=== PATIENT | female | born 1985 | race Caucasian/White ===

== ENCOUNTER → 2017-07-03 | Outpatient (CLI) | payer MEDICAID ==
[~2017-07-03] MED LIST: ABCT PO; ACET-789 PO; AZIT-21 PO; D-ME118S7 PO; DOXY100C2 PO; GUAI120S36 PO; IBUP-1773 PO; METR500T; NEOM10DR20 EACH EAR; NITR-65 PO; ONDAN4ODT PO; PRD20T PO; PREN-93 PO; PREN1TAB39 PO; SERT25TA PO; iud
--- NOTE | 2017-07-03 13:52 | Diagnostic Imaging Report ---
INDICATION: Pelvic pain. TECHNIQUE: Transabdominal and transvaginal pelvic sonography was performed. FINDINGS: The uterus measures 7.4 x 4.4 x 3.2 cm. The endometrium is 6 mm in thickness. No uterine mass is identified. The right ovary measures 1.7 x 2.5 x 3.5 cm and the left ovary measures 2.2 x 1.4 x 2.7 cm. There is vascularity to the ovaries. No adnexal mass or free fluid is identified. IMPRESSION: Essentially unremarkable transabdominal and transvaginal pelvic ultrasound. Dictated by: Dictated on workstation # [id number]
== END ==
LOC: RAD 12:24
PROVIDERS: ATTEND Obstetrics & Gynecology
DX: R10.2 Pelvic and perineal pain (principal)
CPT/HCPCS: 76830; 76856

== ENCOUNTER 2017-11-16 08:45 | Day surgery (SDC) | payer MEDICAID ==
[~2017-11-16] VITALS: Ht 160 cm; Wt 102.5 kg
[2017-11-16] VITALS (7 sets, daily range): BP systolic 95–112; BP diastolic 54–65
[2017-11-16] MEDS ORDERED: ceFAZolin INJECTION 1,000 MG in NS (IVPB) 50 ML IV ONE (09:00)
[2017-11-16] MEDS: LACTATED RINGERS 1,000 ML IV PRN ×2 (09:15→11:25)
[2017-11-16] MEDS ORDERED: D5 LR IV SOLUTION 1,000 ML IV SCH (09:23)
[2017-11-16] MEDS ORDERED: HYDR-757 PO (09:25)
[2017-11-16] MEDS ORDERED: IBUP-1773 PO (09:25)
--- NOTE | 2017-11-16 09:25 | Discharge Inst-Women's Service ---
Discharge Inst-Women's Serv Depart Medication/Instructions New, Converted or Re-Newed RX: RX on Chart Consults/Follow Up Additional Follow Up: Yes Orders/Referrals Dr. Hernandez in 7-10 days Activity Activity: Activity as Tolerated Driving Instructions: You May Drive NO SMOKING: NO SMOKING Nothing Inside Vagina: No Douching, No Abrams, No Tampons Diet Discharge Diet: No Restrictions Symptoms to Report to : Bleeding Excessive, Pain Increased, Fever Over 101 Degrees F, Vaginal Bleeding Increase, Questions/Concerns For Any Problems or Questions: Contact Your Physician Skin/Wound Care Infection Signs and Symptoms: Increased Redness, Foul Odor of Wound, Increased Drainage, Skin Itchy or Has a Rash, Increased Swelling, Temperature Above 101 F Operative Area Clean and Dry: Keep Incision Clean/Dry Stitches/Danny/Dermabond: Dermabond, Care of Stitches Bathing Instructions: JAE Baez DO Nov 16, 2017 09:25
[2017-11-16] MEDS ORDERED: ONDANSETRON 4 MG/2 ML (SDV) Z0FRAN IVP PRN ×2 (09:30→12:15)
[2017-11-16] MEDS ORDERED: KETOROLAC 30 MG/ML VIAL IVP ONE (09:30)
[2017-11-16] MEDS ORDERED: HYDROcodone/APAP 5 MG/325 MG (LORTAB) TAB PO PRN (09:30)
[2017-11-16] MEDS ORDERED: FAMOTIDINE 20MG/2ML IV (PEPCID) IVP ONE (09:45)
[2017-11-16 09:53] LABS: BASOPHILS % (AUTO) 0 % (0-10); EOSINOPHILS # (AUTO) 0.1 10^3/uL (0.0-0.3); EOSINOPHILS % (AUTO) 1 % (0-10); HEMATOCRIT 39 % (35-52); LYMPHOCYTES # (AUTO) 3.1 X 10^3 (1.0-4.0); LYMPHOCYTES % (AUTO) 31 % (12-44); MEAN CORPUSCULAR HEMOGLOBIN 30 PG (25-34); MEAN CORPUSCULAR HGB CONC 33 G/DL (32-36); MEAN CORPUSCULAR VOLUME 91 FL (80-99); MEAN PLATELET VOLUME 9.6 FL (7.4-10.4); MONOCYTES # (AUTO) 1.1 X 10^3 (0.0-1.0); MONOCYTES % (AUTO) 10 % (0-12); NEUTROPHILS % (AUTO) 58 % (42-75); PLATELET COUNT 345 10^3/uL (130-400); RED BLOOD COUNT 4.27 10^6/uL (4.35-5.85); RED CELL DISTRIBUTION WIDTH 12.8 % (10.0-14.5); WHITE BLOOD COUNT 10.3 10^3/uL (4.3-11.0)
[2017-11-16] MEDS ORDERED: LIDOCAINE PF 2% 5 ML (XYLOCAINE) VIAL ONE (10:24)
[2017-11-16] MEDS ORDERED: ONDANSETRON 4 MG/2 ML (SDV) Z0FRAN ONE ×2 (10:24→12:21)
[2017-11-16] MEDS ORDERED: SEVOFLURANE (ULTANE) 15 ML INHAL SOLN ONE (10:24)
[2017-11-16] MEDS ORDERED: ROCURONIUM 10 MG/ML 5 ML SYRINGE IV ONE (10:24)
[2017-11-16] MEDS ORDERED: NEOSTIGMINE 1 MG/ML 5 ML SYRINGE ONE (10:24)
[2017-11-16] MEDS ORDERED: proPOfol 200 MG/20 ML (DIPRIVAN) VIAL IV ONE (10:24)
[2017-11-16] MEDS ORDERED: DEXAMETHASONE 10 MG/ML (DECADRON) 1 ML VIAL ONE (10:24)
[2017-11-16] MEDS ORDERED: GLYCOPYRROLATE 0.2 MG/ML (ROBINUL) 2 ML VIAL ONE (10:24)
[2017-11-16] MEDS ORDERED: fentaNYL INJECTION 250 MCG/5 ML AMP ONE (10:25)
[2017-11-16] MEDS ORDERED: MIDAZOLAM 2 MG/2 ML (VERSED) VIAL ONE (10:25)
[2017-11-16] MEDS ORDERED: BUPIVACAINE 0.25% 30 ML (SENSORCAINE) VIAL ONE (10:32)
[2017-11-16] MEDS ORDERED: HYDROmorphone 1 MG/ML (DILAUDID) 1 ML SYRINGE IV PRN (12:15)
[2017-11-16] MEDS ORDERED: morphine INJ 10 MG/ML 1ML (SYR OR VIAL) ONE (12:20)
[2017-11-16] MEDS ORDERED: KETOROLAC 30 MG/ML VIAL ONE (12:20)
[2017-11-16] MEDS: morphine INJ 10 MG/ML 1ML (SYR OR VIAL) IVP PRN ×2 (12:24→12:29)
--- NOTE | 2017-11-16 14:08 | Anesthesia-General Post-Op ---
General Patient Condition Mental Status/LOC: Same as Preop Cardiovascular: Satisfactory Nausea/Vomiting: Absent Respiratory: Satisfactory Pain: Controlled Complications: Absent Post Op Complications Complications None Follow Up Care/Instructions Patient Instructions None needed. Anesthesia/Patient Condition Patient Condition Patient is doing well, no complaints, stable vital signs, no apparent adverse anesthesia problems. No complications reported per nursing. [place] [facility] No JUDY JOHNSON CRNA Nov 16, 2017 14:08
--- NOTE | 2017-11-16 21:36 | OPERATIVE REPORT ---
DATE OF SERVICE: PREOPERATIVE DIAGNOSIS: A 32-year-old female with chronic pelvic pain. POSTOPERATIVE DIAGNOSES: 1. A 32-year-old female with chronic pelvic pain. 2. Left ovarian cyst. 3. Filmy adhesions of the anterior abdominal wall. PROCEDURE: Laparoscopic left ovarian cystotomy with lysis of adhesions. SURGEON: Jae Lee DO ANESTHESIA: General endotracheal. ESTIMATED BLOOD LOSS: Minimal. URINE OUTPUT: 1200 mL of lactated Ringer's solution. SPECIMENS SENT: None. INDICATIONS FOR PROCEDURE: This 32-year-old female was a patient who had been seeing me for over 3 months now with this onset of pelvic pain. Initially with this pain, the patient had been diagnosed with PID and was treated; however, her test of cure three months later was found to be negative. The patient continued to have ongoing issues with the same pain that was bothering her when she had the PID diagnosis. She reports that she has always had chronic pelvic pain; however, now it seems to be getting worse. I discussed with the patient a more conservative management options. However, she wanted to be more aggressive as the pain was becoming debilitating with her life and her job. Risk of the procedure was discussed with the patient in detail including risk of bleeding, infection, damage to surrounding structures including but not limited to bowel, bladder, ureter, kidneys, pre and postoperative expectations, possible postoperative complications, risk from anesthesia and even . After everything was discussed with the patient in detail, consent was obtained in the preoperative area and the patient was taken to the operating room. OPERATIVE REPORT IN DETAIL: Once in the operating room, general anesthesia was found to be adequate, placed in dorsal lithotomy position, prepped and draped in normal sterile fashion. A timeout was performed. A Bernal catheter was placed using sterile technique. A weighted speculum was inserted in the patient's vagina. A right angle retractor was used to visualize the cervix, which was grasped at 12 o'clock position using a long Allis clamp. I then gently sound the uterine cavity depth, which was found to be 8 cm. I placed a Vdolger uterine manipulator to a depth of 8 cm deploying the balloon and used this as my manipulation on the uterus. All other instruments were then removed from the patient's vagina and a Bernal catheter was left in place. A change of gloves was performed and I then took my attention to the abdomen. Infraumbilically, I infiltrated this area using 0.25% Marcaine, making a 5 mm incision and directed a Veress needle through this incision until intraperitoneal placement was confirmed using a saline drop test; however, when I did go to insufflate, I was able to confirm intraperitoneal pressure; therefore, I did go to the left upper quadrant mid costal margin and made a 2 mm incision just wide enough to allow a Veress needle to go through this incision. I introduced it through the skin down to the peritoneum until intraperitoneal placement was confirmed using saline drop test. I then proceeded with insufflation using CO2 gas and opening pressure of 6 mmHg and then, I proceeded to maximum pressure of 15 mmHg, at which point, I removed this Veress needle and introduced a 5 mm blunt camera trocar through my infraumbilical trocar site. Once this was done, I was able to confirm intraperitoneal placement using the laparoscope. There were filmy adhesions just around my insertion point; however, no involvement of bowel, only greater omentum. I then placed a second trocar site 5 mm. The skin was infiltrated suprapubically using 0.25% Marcaine. I made a 5 mm incision and direct this trocar through the incision until intraperitoneal placement was confirmed with direct visualization of the laparoscope. Once this was in place, I had the patient placed in steep Trendelenburg. I was able to see all of the findings described in my findings above. I took down the filmy adhesions of the pelvic lower anterior abdominal wall using EndoShears. I then created a large window in this left ovarian cyst. It is approximately 3 x 4 cm. Clear yellow fluid was noted from the cyst, after which, it was copiously irrigated using normal saline. There was no active bleeding noted from any of my dissection planes. I copiously irrigated the pelvis and inspected the rest of the pelvis for any signs of endometriosis or residual disease involving PID or chronic adhesions. There was nothing of the sort. At that point, I deemed the procedure complete. The insufflation was released through the two trocar sites and 10 mL of 0.25% Marcaine was introduced through these trocar sites as well. I then left the trocar sites in place to release all insufflation and removed the trocars. The skin was reapproximated using Dermabond in all three incisions sites. The Bernal catheter and Kronner uterine manipulator was removed without difficulty. The patient tolerated the procedure well and sent to recovery area in stable condition. Lap and sponge counts were correct at the end of the procedure. Instrument counts were correct as well. Job ID: [id number] DocumentID: [id number] Dictated Date: 11/16/2017 12:05:59 [employer] Date: 11/16/2017 21:35:13 Dictated By: JAE LEE DO
== END 2017-11-16 16:30 | disposition home or self-care (01) ==
LOC: SDC 08:45
PROVIDERS: ATTEND Obstetrics & Gynecology
DX: N83.202 Unspecified ovarian cyst, left side (principal); R10.2 Pelvic and perineal pain; J45.909 Unspecified asthma, uncomplicated; E66.01 Morbid (severe) obesity due to excess calories; Z68.41 Body mass index [BMI] 40.0-44.9, adult
CPT/HCPCS: 36415; 84703; 85025; 86850; 86900; 86901; 87081; 94664

== ENCOUNTER → 2018-11-02 | Outpatient (CLI) | payer BC, MEDICAID ==
[~2018-11-02] MED LIST changes: +HYDR-4226 PO
--- NOTE | 2018-11-02 18:36 | Diagnostic Imaging Report ---
INDICATION: Anatomic survey. TECHNIQUE: Multiple real-time grayscale images were obtained over the gravid uterus. COMPARISON: None. FINDINGS: There is a single live intrauterine gestation. Presentation is breech. The cervix measures 5.8 cm with no funneling seen. The placenta is anterior with no evidence of previa. The bladder is seen. The cord insertion is seen. Both the lower extremities are seen. The four-chamber heart is seen. The kidneys are seen. The stomach is seen. The profile is seen. The lower spine is seen. The upper spine is not well seen. The intracranial structures are not well seen. The ventricles do not appear enlarged. A three-vessel cord is not well seen on grayscale, but two uterine arteries are seen with Doppler. No anatomic abnormalities are seen. The maternal adnexa are not seen. Biometrical measurements are as follows: Biparietal 5.58 cm, age 23 weeks 1 days. Head circumference 20.83 cm, age 23 weeks 0 days. Abdominal circumference 18.77 cm, age 23 weeks 4 days. Femur length 3.97 cm, age 22 weeks 6 days. Sonographic estimate age: 23 weeks 1 days. Sonographic estimated date of delivery: 02/28/2019. Estimated Weight: 570 gm (+/- 83 gm). LMP percentile: 80%. heart rate: 151 beats per minute. number: 1 of 1. IMPRESSION: 1. Single live intrauterine gestation measuring at 23 weeks and 1 day, which is within range of the clinical dates of 22 weeks and 3 days. 2. Anatomic survey as described above. The upper spine and intracranial structures are not well seen. 3. Breech presentation. Dictated by: Dictated on workstation # [id number]
== END ==
LOC: RAD 15:52
PROVIDERS: ATTEND Obstetrics & Gynecology
DX: Z36.89 Encounter for other specified antenatal screening (principal); Z3A.23 23 weeks gestation of pregnancy
CPT/HCPCS: 76805

== ENCOUNTER 2018-12-28 12:17 | Outpatient (CLI) | payer MEDICAID ==
[~2018-12-28] VITALS: Ht 160 cm; Wt 107.0 kg
[2018-12-28 12:25] VITALS: BP 104/55
--- NOTE | 2018-12-28 12:25 | NUR ---
YASMEEN CANSECO presented to unit via ambulation from ED, accompanied by s/o , with c/o contractions, nausea, dizziness, lightheadedness. Pt. weighed, gowned, voided, and to bed. EFHM and TOCO applied, VS taken. Pt. oriented to bed controls, call light, TV, heat, and A/C controls.
--- NOTE | 2018-12-28 12:30 | NUR ---
pt reports feeling "shaky" at work, dizzy, and lightheaded that started @ 1030 this a.m. emesis x1 this a.m. c/o generalized weakness and fatigue; pain and pressure in vaginal area x 1-1.5 weeks. reports being treated @ [facility] on December 19 for dehydration, received IVF's.
--- NOTE | 2018-12-28 12:49 | NUR ---
closed, thick, posterior.
[2018-12-28 13:05] VITALS: BP 113/54
--- NOTE | 2018-12-28 13:10 | NUR ---
up to BR. UA specimen collected, labeled and sent to lab.
[2018-12-28 13:40] LABS: CLARITY,URINE CLEAR; COLOR,URINE YELLOW; GLUCOSE, URINE (UA) NEGATIVE (NEGATIVE); KETONES,URINE 1+ (NEGATIVE); LEUKOCYTE ESTERASE ,URINE 1+ (NEGATIVE); NITRITE,URINE NEGATIVE (NEGATIVE); PH,URINE 5 (5-9); PROTEIN,URINE 2+ (NEGATIVE); UROBILINOGEN,URINE 4 MG/DL (NORMAL)
[2018-12-28 13:46] LABS: BILIRUBIN,URINE 1+ (NEGATIVE)
--- NOTE | 2018-12-28 13:50 | NUR ---
called. will return phone call after OR case.
[2018-12-28 13:53] LABS: BACTERIA,URINE LARGE /HPF; RBC,URINE 0-2 /HPF; WBC,URINE 0-2 /HPF
--- NOTE | 2018-12-28 14:45 | NUR ---
was called. reviewed pt's admit c/o's, UA results and monitor tracing. orders received for IV fluids, may dismiss after when stable.
[2018-12-28] MEDS ORDERED: D5 LR IV SOLUTION 1,000 ML IV ONE ×2 (14:48→15:00)
--- NOTE | 2018-12-28 15:00 | NUR ---
#20g IV to Rt.AC x1 attempt by this RN. site patent, secured with opsite. D5LR infusing w/o per gravity.
--- NOTE | 2018-12-28 15:43 | NUR ---
regular diet served per pt's request. pt eating chicken strips, mashed potatoes.
--- NOTE | 2018-12-28 16:34 | NUR ---
dismissal instructions given, verbalizes understanding. signature page signed, placed on chart. instructed to follow up with as scheduled.
--- NOTE | 2018-12-28 16:47 | NUR ---
IV site dc'd. Addendum: 12/28/18 at 2038 by MAMI GRAHAM RN D5LR infusion completed.
--- NOTE | 2018-12-28 17:48 | NUR ---
pt ambulated to private vehicle with s/o @ side. pt stable with no sx's distress noted.
--- NOTE | 2018-12-31 09:34 | Physician Query-Final Dx ---
DOMINIK ARRINGTON 12/31/18 0934: Clinic Account Progress/Dx Physician Query: Please give diagnosis Please remember to give gestational weeks Date of Service Dec 28, 2018 at 12:17 STEPHANIE KOLB MD 12/31/18 1357: Clinic Account Progress/Dx DIAGNOSIS: Diagnosis FALSE LABOR - ?? DOMINIK CROWLEY Dec 31, 2018 09:34 STEPHANIE KOLB MD Dec 31, 2018 13:57
== END 2018-12-28 17:48 | disposition home or self-care (01) ==
LOC: WSo 12:17 → LDRP 12:18 → WSo 17:48
PROVIDERS: ATTEND Obstetrics & Gynecology
DX: O47.9 False labor, unspecified (principal)
CPT/HCPCS: 81000; 87088; 96360; 96361; 99213

== ENCOUNTER 2019-02-25 09:52 | Outpatient (CLI) | payer OTHER ==
[~2019-02-25] VITALS: Ht 160 cm; Wt 106.3 kg
[2019-02-25 14:11] VITALS: BP 114/76
[2019-02-25] MEDS ORDERED: FAMO40TA6 PO (14:22)
[2019-02-25] MEDS ORDERED: PNV1TABL81 PO (14:22)
[2019-02-25] MEDS ORDERED: FERR325T18 PO (14:22)
[2019-03-01] MEDS ORDERED: DOCU100C37 PO (08:26)
[2019-03-01] MEDS ORDERED: IBUP-844 PO (08:26)
[2019-03-01] MEDS ORDERED: HYDR-4226 PO (08:26)
== END 2019-02-25 10:18 | disposition home or self-care (01) ==
LOC: PREOP 09:52
PROVIDERS: ATTEND Obstetrics & Gynecology
DX: Z01.818 Encounter for other preprocedural examination (principal)
CPT/HCPCS: 87081

== ENCOUNTER 2019-03-01 05:25 | Inpatient (IN) | payer MEDICAID, OTHER ==
[~2019-03-01] VITALS: Ht 160 cm; Wt 106.5 kg
[2019-03-01] VITALS (9 sets, daily range): BP systolic 100–120; BP diastolic 56–111
[~2019-03-01 05:25] MED LIST changes: +ERYTHROMYCIN OPHTH OINT 1 GM (SINGLE USE) TUBE ONE; +FAMO40TA6 PO; +FERR325T18 PO; +PETROLATUM JELLY(VASELINE) 49 GM JAR ONE; +PHYTONADIONE (VIT. K) NEONATAL 1 MG/0.5 ML AMP ONE; +PNV1TABL81 PO
--- NOTE | 2019-03-01 06:10 | NUR ---
YASMEEN CANSECO presented to unit via ambulation from home, accompanied by family , for REPEAT . YASMEEN CANSECO weighed, gowned, voided, and to bed. EFHM and TOCO applied, VS taken. YASMEEN CANSECO oriented to bed controls, call light, TV, heat, and A/C controls.
[2019-03-01] MEDS ORDERED: METOCLOPRAMIDE INJ 10 MG/2 ML (REGLAN) ONE (06:15)
[2019-03-01] MEDS ORDERED: WATER (STERILE) FOR INJECTION 0 ML ONE (06:16)
[2019-03-01] MEDS ORDERED: FAMOTIDINE 20MG/2ML IV (PEPCID) ONE (06:16)
[2019-03-01] MEDS ORDERED: ceFAZolin INJECTION 0 MG ONE (06:16)
[2019-03-01] MEDS ORDERED: CITRIC ACID/SOB CIT (BICITRA) 30 ML UDC ONE (06:16)
[2019-03-01] MEDS ORDERED: LACTATED RINGERS 1,000 ML IV ONE (06:16)
[2019-03-01] MEDS ORDERED: LACTATED RINGERS 1,000 ML IV PRN ×2 (06:29)
[2019-03-01] MEDS ORDERED: ceFAZolin INJECTION 1,000 MG in WATER (STERILE) FOR INJECTION 10 ML IV ONE (06:30)
[2019-03-01] MEDS ORDERED: METOCLOPRAMIDE INJ 10 MG/2 ML (REGLAN) IV ONE (06:30)
[2019-03-01] MEDS ORDERED: CITRIC ACID/SOB CIT (BICITRA) 30 ML UDC PO ONE (06:30)
[2019-03-01] MEDS ORDERED: FAMOTIDINE 20MG/2ML IV (PEPCID) IV ONE (06:30)
--- NOTE | 2019-03-01 06:51 | History & Physical-OB ---
OB - Chief Complaint & HPI Date/Time Date of Admission: Date of Admission: Mar 01, 2019 at 6:13 am Date seen by a Provider: Mar 01, 2019 Time Seen by a Provider: 07:05 Chief Complaint/History OB-Reason for Admission/Chief: Section Hx : 3 Hx Para: 1 Expected Date of Delivery: Mar 05, 2019 Gestational Age in Weeks: 39 Gestational Age in Days: 3 Indication for : desires repeat Admission Nurse Assessment Rev: Yes History of Labs O pos Antibody neg RI RPR NR HBsAg NR HIV NR GC neg GBS neg Allergies and Home Medications Allergies Coded Allergies: cephalexin (Unverified Allergy, Unknown, 07/16/14) Home Medications Famotidine 40 Mg Tablet, 40 MG PO DAILY, (Reported) Ferrous Sulfate 325 Mg Tablet, 325 MG PO DAILY, (Reported) Pnv No.122/Iron/Folic Acid 1 Each Tablet, 1 EACH PO DAILY, (Reported) Patient Home Medication List Home Medication List Reviewed: Yes OB - History Hx of Present Care: Yes Ultrasounds: Normal mid trimester US Obstetrical Complications: None Medical Complications: None Delivery History Hx Section: Yes (w/ current ) Hx Blood Disorders: No Patient Past Medical History Endometriosis BMI 40 Social History/Family History Sexually Transmitted Disease: No Immunizations Tetanus Booster (TDap): Unknown OB - Admission Exam Physical Exam HEENT: NCAT Heart: Rhythm Normal Lungs: Clear Abdomen: Gravid Extremities: Normal Reflexes: Normal Heart Rate: 130's Accelerations: Accelerations Present Decelerations: No Decelerations Short Term Variability: Present Detention Variability: Average (6-25) Contractions on Admission: >10 Minutes Apart Intensity: Mild OB - Assessment/Plan/Diagnosis Assessment Assessment: section Admission Dx 34 yo @ 39.3 Previous GBS neg BMI >35 Admission Status: Inpatient Order (span 2 midnights) Reason for Inpatient Admission: Repeat at term Plan Plan: Section JAE LEE DO Mar 01, 2019 6:51 am
[2019-03-01] MEDS ORDERED: BUPIVACAINE 0.5% 30 ML (SENSORCAINE) VIAL ONE (06:52)
[2019-03-01] MEDS ORDERED: fentaNYL INJECTION 100 MCG/2 ML AMP ONE (06:53)
[2019-03-01] MEDS ORDERED: OXYTOCIN PRE-MIX DRIP 500 ML IV ONE (06:57)
[2019-03-01] MEDS ORDERED: CLINDAMYCIN 900 MG/50 ML IVPB 50 ML IV ONE (07:00)
[2019-03-01 07:01] LABS: BASOPHILS % (AUTO) 0 % (0-10); EOSINOPHILS # (AUTO) 0.1 10^3/uL (0.0-0.3); EOSINOPHILS % (AUTO) 1 % (0-10); HEMATOCRIT 30 % (35-52); HEMOGLOBIN 10.1 G/DL (11.5-16.0); LYMPHOCYTES # (AUTO) 3.6 X 10^3 (1.0-4.0); LYMPHOCYTES % (AUTO) 19 % (12-44); MEAN CORPUSCULAR HEMOGLOBIN 31 PG (25-34); MEAN CORPUSCULAR HGB CONC 33 G/DL (32-36); MEAN CORPUSCULAR VOLUME 91 FL (80-99); MEAN PLATELET VOLUME 9.2 FL (7.4-10.4); MONOCYTES # (AUTO) 1.3 X 10^3 (0.0-1.0); MONOCYTES % (AUTO) 7 % (0-12); NEUTROPHILS # (AUTO) 14.2 X 10^3 (1.8-7.8); NEUTROPHILS % (AUTO) 74 % (42-75); PLATELET COUNT 341 10^3/uL (130-400); RED CELL DISTRIBUTION WIDTH 14.2 % (10.0-14.5); WHITE BLOOD COUNT 19.2 10^3/uL (4.3-11.0)
[2019-03-01] MEDS ORDERED: PHENYLEPHRINE 100 MCG/ML 10 ML (ANESTHESIA) SYR ONE (07:34)
[2019-03-01] MEDS: OXYTOCIN PRE-MIX DRIP 500 ML IV SCH ×2 (07:48→08:10)
[2019-03-01 07:53] LABS: BAND NEUTROPHILS 2 %; BASOPHILS % (MANUAL) 0 %; EOSINOPHILS % (MANUAL) 0 %; LYMPHOCYTES % (MANUAL) 18 %; MONOCYTES % (MANUAL) 4 %; NEUTROPHILS % (MANUAL) 76 %; RBC MORPH NORMAL
[2019-03-01] MEDS ORDERED: KETOROLAC 30 MG/ML VIAL ONE (08:14)
[2019-03-01] MEDS ORDERED: IBUP-844 PO (08:26)
[2019-03-01] MEDS ORDERED: HYDR-4226 PO (08:26)
[2019-03-01] MEDS ORDERED: DOCU100C37 PO (08:26)
--- NOTE | 2019-03-01 08:27 | Discharge Inst-Women's Service ---
Discharge Inst-Women's Serv Depart Medication/Instructions New, Converted or Re-Newed RX: RX on Chart Final Diagnosis POD 2 RLTCS Problems Reviewed?: Yes Consults/Follow Up Additional Follow Up: Yes Orders/Referrals Dr. Hernandez in 7-10 days and in 6 weeks Activity Activity: Activity as Tolerated Driving Instructions: No Driving for 1 Week NO SMOKING: NO SMOKING Nothing Inside Vagina: No Douching, No Toppers, No Tampons Diet Discharge Diet: No Restrictions Symptoms to Report to : Bleeding Excessive, Pain Increased, Fever Over 101 Degrees F, Vaginal Bleeding Increase, Questions/Concerns For Any Problems or Questions: Contact Your Physician Skin/Wound Care Infection Signs and Symptoms: Increased Redness, Foul Odor of Wound, Increased Drainage, Skin Itchy or Has a Rash, Increased Swelling, Temperature Above 101 F Operative Area Clean and Dry: Keep Incision Clean/Dry Stitches/Danny/Dermabond: Dermabond, Care of Stitches Bathing Instructions: JAE Baez DO Mar 01, 2019 8:27 am
[2019-03-01] MEDS ORDERED: MEASLES,MUMPS,RUBELLA 1 EA INJ SC SCH (08:30)
[2019-03-01] MEDS ORDERED: TETANUS,DIPTH,PERTUSS P/F (BOOSTRIX) 0.5 ML VIAL IM SCH (08:30)
[2019-03-01] MEDS ORDERED: ONDANSETRON 4 MG/2 ML (SDV) Z0FRAN IVP PRN (08:30)
[2019-03-01] MEDS: KETOROLAC 30 MG/ML VIAL IV SCH ×3 (08:56→21:29)
[2019-03-01] MEDS: DOCUSATE SODIUM 100 MG (COLACE) CAP PO SCH ×2 (10:19→21:29)
[2019-03-01] MEDS: HYDROcodone/APAP 5 MG/325 MG (LORTAB) TAB PO PRN ×2 (12:41→20:12)
--- NOTE | 2019-03-01 12:50 | NUR ---
PT ASSISTED UP TO THE BATHROOM PER THIS RN VIA W/C. + VOID, UNABLE TO MEASURE. PT BACK TO BED VIA W/C. SCDS ON CALVES BILATERALLY. PAIN MEDICATION GIVEN PER REQUEST; SEE EMAR FOR FURTHER. NO FURTHER NEEDS VOICED. CALL LIGHT WITHIN REACH.
[2019-03-01] MEDS ORDERED: CATHETER FLUSH 10 ML SYR IV SCH (14:00)
--- NOTE | 2019-03-01 14:20 | OPERATIVE REPORT ---
DICTATION IN ERROR PLEASE DELETE MTDD
--- NOTE | 2019-03-01 15:10 | NUR ---
PT IN BED, S/O AT THE BEDSIDE. VS OBTAINED. ROUTINE TORADOL GIVEN IVP; SEE EMAR FOR FURTHER. FRESH ICE WATER PROVIDED. NO FURTHER NEEDS VOICED. CALL LIGHT WITHIN REACH.
--- NOTE | 2019-03-01 16:55 | NUR ---
VISITORS AT THE BEDSIDE. PT DENIES ANY NEEDS AT THIS TIME.
--- NOTE | 2019-03-01 22:10 | OPERATIVE REPORT ---
DATE OF SERVICE: 03/01/2019 There is another partial dictionary editor that was started; however, I was interrupted so you can disregard that dictation and use this please as a primary dictation. PREOPERATIVE DIAGNOSES: 1. A 34-year-old G3, P1 at 39 weeks' gestation. 2. Previous section. POSTOPERATIVE DIAGNOSES: 1. A 34-year-old G3, P1 at 39 weeks' gestation. 2. Previous section. PROCEDURE: Repeat low transverse section. SURGEON: Scotty Lee DO PLATEN DRIER OPERATOR: Hali Saba DNP who was necessary for retraction of vital structures throughout the procedure. ANESTHESIA: Spinal. ESTIMATED BLOOD LOSS: 500 mL. URINE OUTPUT: 40 mL clear at the end of the procedure. FLUIDS: 1100 mL lactated Ringer's solution. FINDINGS: A live male , weight pending with Apgars of 8 and 9. Grossly normal appearing uterus, bilateral fallopian tubes and ovaries. INDICATIONS FOR PROCEDURE: This 34-year-old female is a patient who has sought care in my office. She was elected to proceed with a repeat . Risks of the procedure were discussed with the patient in detail, again reviewed with the patient in the preoperative area. After the consent was obtained the patient was taken to the operating room. OPERATIVE REPORT IN DETAIL: Once in the operating room, spinal anesthesia was found to be adequate, placed in supine position with leftward tilt, prepped and draped in normal sterile fashion. A timeout was performed and anesthesia was tested. I then proceeded with making a Pfannenstiel skin incision through the previously existing scar using knife and carried down to underlying fascia using Bovie cautery. Fascial incision was extended laterally using Bovie cautery. Superior aspect of fascial incision was then grasped with Dina clamps, tented upward and dissected off the underlying rectus muscles. The inferior aspect of the fascial incision was then grasped with Dina clamps, tented up and dissected off the underlying rectus muscles. Rectus muscles were then dissected down the midline using Pryor scissors, which exposed the peritoneum, which I entered bluntly and extended using blunt traction. Manuel ring retractor was then placed in the peritoneal incision, which offers excellent lateral sidewall retraction. I then identified the lower uterine segment, which was found to be thinned out and make a low transverse incision to the vesicouterine peritoneum and bluntly dissected off the lower uterine segment, creating a bladder flap. I then proceeded with my myotomy until membranes were visualized. At this point, I extended the uterine incision laterally and superiorly using bandage scissors. The was found in vertex presentation. Amniotomy was performed using Allis clamp. Clear fluid was noted. With gentle fundal pressure, the infant's head was elevated up the incision where it was delivered to the incision. The nares and oropharynx were bulb suctioned. Anterior and posterior shoulders were delivered. was then brought to the operative field where the cord was doubly clamped and cut and infant was handed off to waiting nurses in attendance. Cord blood was collected, 3-vessel cord with intact placenta was delivered spontaneously thereafter. IV Pitocin was initiated to facilitate uterine contraction. Uterine fundus became firm by manual massage. Uterus was exteriorized and cleared of all endometrial clots and debris. I then proceeded with closing the uterine incision using 0 Vicryl suture in running locked fashion. Second layer of imbricating 0 Monocryl was placed. Excellent hemostasis was noted after doing this. I then placed the uterus back in the pelvis, copiously irrigated the pelvis using normal saline. Once again, there was no active bleeding noted from any of my dissection planes. I placed Interceed antiadhesive over my low transverse incision and then proceeded with closing the peritoneum after removing the Manuel ring retractor. The peritoneum was reapproximated using 3-0 Vicryl suture in running fashion. Rectus muscle reapproximated using 3-0 Vicryl suture in interrupted fashion. The fascia was reapproximated using 0 Vicryl suture in running fashion. The subcutaneous tissue was reapproximated using 3-0 plain in an interrupted subcutaneous stitch and skin reapproximated using 4-0 Monocryl in a running subcuticular. Dermabond was applied to incision and sterile dressing with adhesive white tape. The patient tolerated the procedure well and sent to recovery area in stable condition. Lap and sponge counts were correct at the end of the procedure. Instrument counts correct as well. 900 mg of clindamycin were given preoperatively for infection prophylaxis due to a CEPHALOSPORIN ALLERGY. Job ID: [id number] DocumentID: [id number] Dictated Date: 03/01/2019 09:16:30 Physiotherapy Practice Manager Date: 03/01/2019 14:57:05 Dictated By: SCOTTY LEE DO
[2019-03-02 03:45] VITALS: BP 121/68
[2019-03-02] MEDS: KETOROLAC 30 MG/ML VIAL IV SCH (03:59)
[2019-03-02 05:52] LABS: BASOPHILS % (AUTO) 0 % (0-10); EOSINOPHILS # (AUTO) 0.2 10^3/uL (0.0-0.3); EOSINOPHILS % (AUTO) 1 % (0-10); HEMATOCRIT 32 % (35-52); HEMOGLOBIN 10.5 G/DL (11.5-16.0); LYMPHOCYTES # (AUTO) 3.1 X 10^3 (1.0-4.0); LYMPHOCYTES % (AUTO) 19 % (12-44); MEAN CORPUSCULAR HEMOGLOBIN 30 PG (25-34); MEAN CORPUSCULAR HGB CONC 33 G/DL (32-36); MEAN CORPUSCULAR VOLUME 92 FL (80-99); MEAN PLATELET VOLUME 9.7 FL (7.4-10.4); MONOCYTES # (AUTO) 1.2 X 10^3 (0.0-1.0); MONOCYTES % (AUTO) 7 % (0-12); NEUTROPHILS # (AUTO) 11.7 X 10^3 (1.8-7.8); NEUTROPHILS % (AUTO) 72 % (42-75); PLATELET COUNT 304 10^3/uL (130-400); RED CELL DISTRIBUTION WIDTH 14.4 % (10.0-14.5); WHITE BLOOD COUNT 16.3 10^3/uL (4.3-11.0)
--- NOTE | 2019-03-02 07:41 | Postpartum Progress Note ---
Note Note Day # 1 Subjective: Patient is without complaints. Ambulating, voiding. Tolerating a regular diet without nausea or vomiting. Normal lochia. Pain is well controlled with oral pain medications. Objective: Physical Exam: General - Alert and oriented, no apparent distress Abdomen - Soft, appropriately tender to palpation, non-distended, fundus firm at umbilicus Extremities - no edema, negative Robe's bilaterally Incision- c/d/i Assessment: POD 1 RLTCS Acute blood loss anemia Plan: Routine care. Encourage breast feeding. Encourage ambulation. Ferrous sulfate supplementation. Plan for discharge tomorrow Vitals - Labs Vital Signs - I&O Vital Signs Date Time Temp Pulse Resp B/P (MAP) Pulse Ox O2 Delivery O2 Flow Rate FiO2 03/02/19 03:45 36.3 73 20 121/68 (85) 96 Room Air 03/01/19 23:45 36.0 73 16 107/63 (78) 97 Room Air 03/01/19 20:00 36.5 93 18 118/69 (85) 97 Room Air 03/01/19 15:05 36.7 74 18 106/56 (73) 95 Room Air 03/01/19 10:48 Room Air 03/01/19 10:18 36.1 67 16 116/73 (87) 100 Room Air 03/01/19 09:30 Room Air 03/01/19 09:30 37.0 16 115/66 (82) 100 Room Air 03/01/19 09:15 37.1 16 100/111 (107) 63 Room Air 03/01/19 09:15 Room Air 03/01/19 09:00 Room Air 03/01/19 09:00 37.2 16 108/67 (81) 99 Room Air 03/01/19 08:45 Room Air 03/01/19 08:45 36.5 15 110/65 (80) 100 Room Air 03/01/19 08:30 Room Air I & O 03/02/19 07:00 Intake Total 3050 ml Output Total 900 ml Balance 2150 ml Labs Laboratory Tests 03/02/19 05:35: White Blood Count 16.3H, Red Blood Count 3.46L, Hemoglobin 10.5L, Hematocrit 32L , Mean Corpuscular Volume 92, Mean Corpuscular Hemoglobin 30, Mean Corpuscular Hemoglobin Concent 33, Red Cell Distribution Width 14.4, Platelet Count 304, Mean Platelet Volume 9.7, Neutrophils (%) (Auto) 72, Lymphocytes (%) (Auto) 19, Monocytes (%) (Auto) 7, Eosinophils (%) (Auto) 1, Basophils (%) (Auto) 0, Neutrophils # (Auto) 11.7H, Lymphocytes # (Auto) 3.1, Monocytes # (Auto) 1.2H, Eosinophils # (Auto) 0.2, Basophils # (Auto) 0.0 JAE LEE DO Mar 02, 2019 07:41
--- NOTE | 2019-03-02 07:50 | NUR ---
DR. LEE HERE TO SEE PT.
--- NOTE | 2019-03-02 08:00 | NUR ---
CARING FOR INFANT IN ROOM. GOOD INTERACTION NOTED. OFFERS NO COMPLAINTS.
--- NOTE | 2019-03-02 08:17 | Anesthesia-Regional Post-Op ---
Regional Patient Condition Mental Status: Alert, Oriented x3 Circulation: Same as Pre-Op Headache: Absent Sensation: Full Recovery Motor Block: Absent Post Op Complications Complications None Follow Up Care/Instructions Patient Instructions None needed. Anesthesia/Patient Condition Patient is doing well, no complaints, stable vital signs, no apparent adverse anesthesia problems. No complications reported per nursing. STEFANIA HERNANDEZ CRNA Mar 02, 2019 08:16
[2019-03-02 09:00] VITALS: BP 115/77
[2019-03-02] MEDS: DOCUSATE SODIUM 100 MG (COLACE) CAP PO SCH ×2 (09:00→21:07)
--- NOTE | 2019-03-02 09:00 | NUR ---
A.M. ASSESSMENT COMPLETED. VSS.
--- NOTE | 2019-03-02 09:12 | NUR ---
TDAP GIVEN IM IN RIGHT DELTOID PER PT REQUEST. SITE CLEAR. GETTING READY TO SHOWER.
[2019-03-02] MEDS: IBUPROFEN 600 MG (MOTRIN) TAB PO SCH ×3 (09:49→22:03)
--- NOTE | 2019-03-02 10:20 | NUR ---
PT C/O NAUSEA. SNACKS GIVEN. WILL RE-EVALUATE.
--- NOTE | 2019-03-02 12:30 | NUR ---
CONTINUES TO CARE FOR IN ROOM. GOOD INTERACTION NOTED.
[2019-03-02 13:45] VITALS: BP 122/66
[2019-03-02] MEDS: HYDROcodone/APAP 5 MG/325 MG (LORTAB) TAB PO PRN (13:52)
--- NOTE | 2019-03-02 13:52 | NUR ---
LORTAB 1 TAB P.O. FOR C/O ABD PAIN AFTER HAVING A BM. FAMILY AT BEDSIDE.
--- NOTE | 2019-03-02 16:00 | NUR ---
STATES PAIN EASED WITH LORTAB. ROUTINE MOTRIN GIVEN. S.O. AT BEDSIDE.
[2019-03-02 18:00] VITALS: BP 122/75
--- NOTE | 2019-03-02 18:00 | NUR ---
VSS. ENCOURAGED AMBULATION AGAIN IN [place].
--- NOTE | 2019-03-02 18:20 | NUR ---
OUT TO AMBULATE IN THE [place] PUSHING INFANT IN CRIB. MOVING WELL. FAMILY AT SIDE.
--- NOTE | 2019-03-02 19:15 | NUR ---
REPORT RECEIVED AND CARES RESUMED BY THIS NURSE.
--- NOTE | 2019-03-02 20:05 | NUR ---
PT UP AND AROUND IN ROOM WITH VISITORS PRESENT. PT DENIES ANY PAIN OR NEEDS AT THIS TIME. WILL RETURN FOR ASSESSMENT VISITORS LEAVE.
[2019-03-02 20:30] VITALS: BP 112/61
--- NOTE | 2019-03-02 21:10 | NUR ---
PT REPORTS IS HAVING BOWEL MOVEMENTS AND REFUSES COLACE AT THIS TIME. PT DENIES ANY FURTHER NEEDS.
[2019-03-03 00:30] VITALS: BP 124/74
[2019-03-03] MEDS: DOCUSATE SODIUM 100 MG (COLACE) CAP PO SCH (00:45)
--- NOTE | 2019-03-03 00:45 | NUR ---
PT REQUESTS COLACE STATING SHE IS CRAMPY AND UNABLE TO PASS BM. COLACE ADMINISTERED AT THIS TIME. PT DENIES ANY FURTHER NEEDS OR C/O'S.
[2019-03-03] MEDS: HYDROcodone/APAP 5 MG/325 MG (LORTAB) TAB PO PRN ×2 (02:20→07:54)
[2019-03-03 04:10] VITALS: BP 133/69
[2019-03-03] MEDS: IBUPROFEN 600 MG (MOTRIN) TAB PO SCH ×2 (04:12→09:53)
[2019-03-03 07:51] VITALS: BP 114/65
--- NOTE | 2019-03-03 07:51 | NUR ---
AM shift assessment completed and vital signs obtained, see interventions. Plan of care reviewed with patient. Patient verbalizes understanding and questions answered. Encouraged patient to ambulate in halls to relieve gas pain. Shower supplies provided. Scheduled Colace PO and PRN Lortab 1 PO given for patient's c/o pain rated 5/10. Patient denies any further needs or concerns at this time.
--- NOTE | 2019-03-03 09:40 | NUR ---
Dr. Hernandez here to see patient. New orders received.
--- NOTE | 2019-03-03 09:42 | Postpartum Progress Note ---
Note Note Day # 2 Subjective: Patient is without complaints. Ambulating, voiding. Tolerating a regular diet without nausea or vomiting. Normal lochia. Pain is well controlled with oral pain medications. Objective: Physical Exam: General - Alert and oriented, no apparent distress Abdomen - Soft, appropriately tender to palpation, non-distended, fundus firm at umbilicus Extremities - no edema, negative Robe's bilaterally Incision- c/d/i Assessment: POD 2 RLTCS Acute blood loss anemia Plan: Routine care. Encourage breast feeding. Encourage ambulation. Ferrous sulfate supplementation. Plan for discharge today Vitals - Labs Vital Signs - I&O Vital Signs Date Time Temp Pulse Resp B/P (MAP) Pulse Ox O2 Delivery O2 Flow Rate FiO2 03/03/19 07:51 36.6 80 20 114/65 (81) 97 Room Air 03/03/19 04:10 36.8 77 16 133/69 (90) 96 Room Air 03/03/19 00:30 36.5 81 18 124/74 (91) 97 Room Air 03/02/19 20:30 36.7 76 18 112/61 (78) 98 Room Air 03/02/19 18:00 36.9 75 18 122/75 (91) 97 Room Air 03/02/19 13:45 36.5 68 18 122/66 (84) 98 Room Air I & O 03/03/19 07:00 Intake Total 1290 ml Balance 1290 ml JAE LEE DO Mar 03, 2019 09:42
--- NOTE | 2019-03-03 09:53 | NUR ---
Scheduled Motrin PO given.
--- NOTE | 2019-03-03 11:11 | NUR ---
Discharge instructions and medications reviewed with patient both written and verbally. Patient verbalizes understanding and questions answered. Written prescriptions and Boarder Parent information reviewed with Mom.
--- NOTE | 2019-03-03 11:38 | NUR ---
Patient ambulating in halls.
--- NOTE | 2019-03-03 13:15 | NUR ---
Patient discharged at this time to Boarder Status. 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 Reviewed Boarder parent information and instructions for ordering meals. Patient verbalizes understanding and denies any current questions or concerns.
== END 2019-03-03 13:15 | disposition home or self-care (01) | DRG 787 ==
LOC: LDRP 06:13
PROVIDERS: ADMIT Obstetrics & Gynecology; ATTEND Obstetrics & Gynecology
PROC: 10D00Z1 Extraction of Products of Conception, Low, Open Approach (ICD-10-PCS; principal; 2019-03-01 07:17)
DX: O34.211 Maternal care for low transverse scar from previous cesarean delivery (principal); O90.81 Anemia of the puerperium; D62 Acute posthemorrhagic anemia; O98.32 Other infections with a predominantly sexual mode of transmission complicating childbirth; A56.8 Sexually transmitted chlamydial infection of other sites; O26.893 Other specified pregnancy related conditions, third trimester; N80.9 Endometriosis, unspecified; O99.214 Obesity complicating childbirth; E66.9 Obesity, unspecified; O98.52 Other viral diseases complicating childbirth; B01.9 Varicella without complication; Z3A.39 39 weeks gestation of pregnancy; Z37.0 Single live birth; Z23 Encounter for immunization
CPT/HCPCS: 36415; 85007; 85025; 85027; 86850; 86900; 86901; 90715; 94664

== ENCOUNTER 2019-07-19 13:29 | Emergency (ER) | payer MEDICAID ==
[~2019-07-19] VITALS: Ht 160 cm; Wt 100.2 kg
[~2019-07-19 13:29] MED LIST changes: +DOCU100C37 PO; -ERYTHROMYCIN OPHTH OINT 1 GM (SINGLE USE) TUBE ONE; +IBUP-844 PO; -PETROLATUM JELLY(VASELINE) 49 GM JAR ONE; -PHYTONADIONE (VIT. K) NEONATAL 1 MG/0.5 ML AMP ONE
[2019-07-19] MEDS ORDERED: diphenhydrAMINE 50 MG/ML INJ (BENADRYL) IVP ONE (13:45)
[2019-07-19] MEDS ORDERED: PROCHLORPERAZINE 10 MG/2ML INJ (COMPAZINE) IV ONE (13:45)
[2019-07-19] MEDS ORDERED: NS IV 1000 ML 1,000 ML IV SCH (13:45)
[2019-07-19] MEDS ORDERED: KETOROLAC 30 MG/ML VIAL IVP ONE (13:45)
--- NOTE | 2019-07-19 13:50 | ED Headache ---
General Chief Complaint: Head/Cervical Problems Stated Complaint: HEADACHE Nursing Triage Note: COMPLAINS OF WORST HEADACHE OF HER LIFE SINCE MON. STATES SHE WAS SEEN AT [facility] LAST NIGHT AND WAS GIVEN A SHOT AND 2 PILLS. PAIN IS BACK AND WORSE ALSO COMPLAINS OF DIZZINESS THAT STARTED TODAY. Nursing Sepsis Screen: No Definite Risk Source: patient Exam Limitations: no limitations History of Present Illness Date Seen by Provider: Jul 19, 2019 Time Seen by Provider: 13:47 Initial Comments To ER with reports of severe headache that began yesterday evening around 5:00 when her went to work, it started as a mild regular headache and got progressively worse throughout the day. No vomiting, the pain is unilateral frontal. She gets headaches frequently about 3 or 4 times a week. She was seen at [facility] last night, got 2 pills undershot without much improvement. She has mother who of brain aneurysm and uncle as well. Timing/Duration: 24 hours Severity/Quality: moderate Location: frontal Prior Headaches/Recent Trauma: frequent headaches Associated Symptoms: No confusion, No fatigue, No nausea/vomiting, No stiff neck Allergies and Home Medications Allergies Coded Allergies: cephalexin (Unverified Allergy, Unknown, 07/16/14) Patient Home Medication List Home Medication List Reviewed: Yes Review of Systems Review of Systems Constitutional: see HPI Eyes: No Symptoms Reported Ears, Nose, Mouth, Throat: no symptoms reported Respiratory: no symptoms reported Cardiovascular: no symptoms reported Genitourinary: no symptoms reported Musculoskeletal: no symptoms reported Skin: no symptoms reported Psychiatric/Neurological: See HPI, Headache Past Biwyedv-Gvmqml-Mgsekq Hx Patient Social History Alcohol Use: Occasionally Uses Recreational Drug Use: No Recent Foreign Travel: No Contact w/Someone Who Travel: No Recent Infectious Disease Expo: No Recent Hopitalizations: No Immunizations Up To Date Tetanus Booster (TDap): Unknown Seasonal Allergies Seasonal Allergies: No Past Medical History Surgeries: Yes (, D&C, DXLS) Section Respiratory: Yes Asthma Currently Using CPAP: No Currently Using BIPAP: No Cardiac: Yes Heart Murmur Neurological: No Headaches /Migraines Reproductive Disorders: Yes Female Reproductive Disorders: Denies DIE CUTTING MACHINE OPERATOR History: IUD Sexually Transmitted Disease: No Genitourinary: No Gastrointestinal: Yes Gastroesophageal Reflux, Ulcer Musculoskeletal: No Endocrine: No HEENT: No Cancer: No Psychosocial: Yes Anxiety, Depression Integumentary: No Blood Disorders: No Family Medical History Cardiovascular disease 19 FATHER Diabetes mellitus 19 MOTHER FH: leukemia 19 MOTHER Hypertension 19 MOTHER Physical Exam Vital Signs Vital Signs - First Documented 07/19/19 13:35 Temp 36.7 Pulse 78 Resp 16 B/P (MAP) 133/85 (101) Pulse Ox 99 O2 Delivery Room Air Capillary Refill : Less Than 3 Seconds Height, Weight, BMI Height: 5'3.00" Weight: 236lbs. 0.0oz. 107.219659fj; 39.00 BMI Method:Stated General Appearance: WD/WN, no apparent distress HEENT: PERRL/EOMI, normal ENT inspection, TMs normal Neck: non-tender, full range of motion Cardiovascular: regular rate, rhythm Respiratory: no respiratory distress, no accessory muscle use Extremities: normal range of motion, non-tender Psychiatric: alert, oriented x 3 Crainal Nerves: normal hearing, normal speech, PERRL Skin: normal color, warm/dry Progress/Results/Core Measures Results/Orders Lab Results Laboratory Tests Test 07/19/19 13:50 07/19/19 13:54 Range/Units Urine Color YELLOW Urine Clarity CLEAR Urine pH 6.0 5-9 Urine Specific [place] >=1.030 1.016-1.022 Urine Protein TRACE H NEGATIVE Urine Glucose (UA) NEGATIVE NEGATIVE Urine Ketones NEGATIVE NEGATIVE Urine Nitrite NEGATIVE NEGATIVE Urine Bilirubin NEGATIVE NEGATIVE Urine Urobilinogen 0.2 < = 1.0 MG/DL Urine Leukocyte Esterase NEGATIVE NEGATIVE Urine RBC (Auto) 2+ H NEGATIVE Urine RBC 2-5 H /HPF Urine WBC RARE /HPF Urine Squamous Epithelial Cells 2-5 /HPF Urine Crystals NONE /LPF Urine Bacteria NEGATIVE /HPF Urine Casts NONE /LPF Urine Mucus NEGATIVE /LPF Urine Culture Indicated NO Urine Opiates Screen NEGATIVE NEGATIVE Urine Oxycodone Screen NEGATIVE NEGATIVE Urine Methadone Screen NEGATIVE NEGATIVE Urine Propoxyphene Screen NEGATIVE NEGATIVE Urine Barbiturates Screen POSITIVE H NEGATIVE Ur Tricyclic Antidepressants Screen NEGATIVE NEGATIVE Urine Phencyclidine Screen NEGATIVE NEGATIVE Urine Amphetamines Screen NEGATIVE NEGATIVE Urine Methamphetamines Screen NEGATIVE NEGATIVE Urine Benzodiazepines Screen NEGATIVE NEGATIVE Urine Cocaine Screen NEGATIVE NEGATIVE Urine Cannabinoids Screen NEGATIVE NEGATIVE White Blood Count 12.0 H 4.3-11.0 10^3/uL Red Blood Count 4.60 4.35-5.85 10^6/uL Hemoglobin 13.3 11.5-16.0 G/DL Hematocrit 41 35-52 % Mean Corpuscular Volume 88 80-99 FL Mean Corpuscular Hemoglobin 29 25-34 PG Mean Corpuscular Hemoglobin Concent 33 32-36 G/DL Red Cell Distribution Width 13.5 10.0-14.5 % Platelet Count 381 130-400 10^3/uL Mean Platelet Volume 9.2 7.4-10.4 FL Neutrophils (%) (Auto) 67 42-75 % Lymphocytes (%) (Auto) 25 12-44 % Monocytes (%) (Auto) 7 0-12 % Eosinophils (%) (Auto) 1 0-10 % Basophils (%) (Auto) 0 0-10 % Neutrophils # (Auto) 8.1 H 1.8-7.8 X 10^3 Lymphocytes # (Auto) 3.0 1.0-4.0 X 10^3 Monocytes # (Auto) 0.8 0.0-1.0 X 10^3 Eosinophils # (Auto) 0.1 0.0-0.3 10^3/uL Basophils # (Auto) 0.0 0.0-0.1 10^3/uL Sodium Level 140 135-145 MMOL/L Potassium Level 4.0 3.6-5.0 MMOL/L Chloride Level 108 H 98-107 MMOL/L Carbon Dioxide Level 24 21-32 MMOL/L Anion Gap 8 5-14 MMOL/L Blood Urea Nitrogen 13 7-18 MG/DL Creatinine 0.80 0.60-1.30 MG/DL Estimat Glomerular Filtration Rate > 60 BUN/Creatinine Ratio 16 Glucose Level 83 70-105 MG/DL Calcium Level 9.2 8.5-10.1 MG/DL Serum Test, Qualitative NEGATIVE NEGATIVE My Orders Orders - CECILE LIRIANO APRN Cbc With Automated Diff (07/19/19 13:43) Hcg,Qualitative Serum (07/19/19 13:43) Basic Metabolic Panel (07/19/19 13:43) Ua Culture If Indicated (07/19/19 13:43) Drug Screen Stat (Urine) (07/19/19 13:43) Ed Iv/Invasive Line Start (07/19/19 13:43) Ketorolac Injection (Toradol Injection) (07/19/19 13:45) Prochlorperazine Injection (Compazine In (07/19/19 13:45) Diphenhydramine Injection (Benadryl Inje (07/19/19 13:45) Ns Iv 1000 Ml (Sodium Chloride 0.9%) (07/19/19 13:45) Ct Angio Head W (07/19/19 13:51) Iohexol Injection (Omnipaque 350 Mg/Ml 1 (07/19/19 14:00) Received Contrast (Hold Metformin- Contr (07/19/19 14:00) Ns (Ivpb) (Sodium Chloride 0.9% Ivpb Bag (07/19/19 14:00) Medications Given in ED Current Medications Medications Dose Ordered Sig/Estephanie Route Start Time Stop Time Status Last Admin Dose Admin Diphenhydramine HCl 25 mg ONCE ONCE IVP 07/19/19 13:45 07/19/19 13:46 DC 07/19/19 14:03 25 MG Iohexol 75 ml ONCE ONCE IV 07/19/19 14:00 07/19/19 14:01 DC 07/19/19 14:27 75 ML Ketorolac Tromethamine 15 mg ONCE ONCE IVP 07/19/19 13:45 07/19/19 13:46 DC 07/19/19 14:04 15 MG Prochlorperazine Edisylate 5 mg ONCE ONCE IV 07/19/19 13:45 07/19/19 13:46 DC 07/19/19 14:03 5 MG Sodium Chloride 100 ml ONCE ONCE IV 07/19/19 14:00 07/19/19 14:01 DC 07/19/19 14:28 100 ML Vital Signs/I&O 07/19/19 13:35 Temp 36.7 Pulse 78 Resp 16 B/P (MAP) 133/85 (101) Pulse Ox 99 O2 Delivery Room Air Blood Pressure Mean: 101 Departure Communication (Admissions) Family Conversation 1445-headache improved NAME: YASMEEN CANSECO [facility] REC#: [id number] PT STATUS: REG ER : 1985 PHYSICIAN: CECILE LIRIANO APRN ADMIT DATE: 07/19/19/ER Draft Date of Exam:07/19/19 CT ANGIO HEAD W INDICATION: Headache in left temporal region for two days as well as dizziness and blurred vision. TECHNIQUE: Pre and postcontrast axial imaging through the brain was performed. CT angiography protocol was utilized. Multiplanar, 3-D and MIP reformations are also performed. COMPARISON: Comparison is made with noncontrast head CT from 09/08/2014. FINDINGS: Ventricles and sulci are within normal limits. No sulcal effacement or midline shift is identified. No acute intra-axial or extra-axial hemorrhage is detected. Distal internal carotid arteries are unremarkable. Anterior, middle and posterior cerebral arteries are patent. No definite aneurysm is identified. No vascular malformation is seen. Basilar artery is patent. Delayed postcontrast images are without abnormal enhancement. IMPRESSION: Unremarkable CT angiogram of the head. Dictated on workstation # [id number] Dict: 07/19/19 1428 Trans: 07/19/19 1434 [facility] [id number] Interpreted by: RICARDO AKHTAR MD Electronically signed by: Impression Primary Impression: Headache Qualified Codes: R51 - Headache Disposition: 01 HOME, SELF-CARE Condition: Stable Departure-Patient Inst. Decision time for Depature: 14:36 [address]errals: [facility] (PCP/Family) Primary Care Physician Patient Instructions: Headache, Adult (DC) Add. Discharge Instructions: 1. Follow-up with your family doctor next week to discuss starting a medication that will help reduce the frequency of your headaches. All discharge instructions reviewed with patient and/or family. Voiced understanding. Work/School Note: Work Release Form Date Seen in the Emergency Department: Jul 19, 2019 Return to Work: Jul 20, 2019 CECILE LIRIANO APRN Jul 19, 2019 13:50
[2019-07-19 13:55] LABS: BILIRUBIN,URINE NEGATIVE (NEGATIVE); CLARITY,URINE CLEAR; COLOR,URINE YELLOW; GLUCOSE, URINE (UA) NEGATIVE (NEGATIVE); KETONES,URINE NEGATIVE (NEGATIVE); LEUKOCYTE ESTERASE ,URINE NEGATIVE (NEGATIVE); NITRITE,URINE NEGATIVE (NEGATIVE); PROTEIN,URINE TRACE (NEGATIVE)
[2019-07-19] MEDS ORDERED: IOHEXOL 350 MG/ML 100 ML (OMNIPAQUE 350) VIAL IV ONE (14:00)
[2019-07-19] MEDS ORDERED: HOLD METFORMIN - RECEIVED CONTRAST 20 ML VIAL IV SCH (14:00)
[2019-07-19] MEDS ORDERED: NS 100 ML (IVPB) BAG IV ONE (14:00)
[2019-07-19 14:01] LABS: BASOPHILS % (AUTO) 0 % (0-10); EOSINOPHILS # (AUTO) 0.1 10^3/uL (0.0-0.3); EOSINOPHILS % (AUTO) 1 % (0-10); HEMATOCRIT 41 % (35-52); HEMOGLOBIN 13.3 G/DL (11.5-16.0); LYMPHOCYTES % (AUTO) 25 % (12-44); MEAN CORPUSCULAR HEMOGLOBIN 29 PG (25-34); MEAN CORPUSCULAR HGB CONC 33 G/DL (32-36); MEAN CORPUSCULAR VOLUME 88 FL (80-99); MEAN PLATELET VOLUME 9.2 FL (7.4-10.4); MONOCYTES # (AUTO) 0.8 X 10^3 (0.0-1.0); MONOCYTES % (AUTO) 7 % (0-12); NEUTROPHILS # (AUTO) 8.1 X 10^3 (1.8-7.8); NEUTROPHILS % (AUTO) 67 % (42-75); PLATELET COUNT 381 10^3/uL (130-400); RED CELL DISTRIBUTION WIDTH 13.5 % (10.0-14.5)
[2019-07-19 14:04] LABS: BACTERIA,URINE NEGATIVE /HPF; WBC,URINE RARE /HPF
[2019-07-19 14:10] LABS: AMPHETAMINE SCREEN, URINE NEGATIVE (NEGATIVE); BARBITURATE SCREEN URINE POSITIVE (NEGATIVE); BENZODIAZEPINES SCREEN URINE NEGATIVE (NEGATIVE); CANNABINOID SCREEN, URINE NEGATIVE (NEGATIVE); COCAINE SCREEN URINE NEGATIVE (NEGATIVE); METHADONE STAT NEGATIVE (NEGATIVE); METHAMPHETAMINE SCREEN URINE S NEGATIVE (NEGATIVE); OPIATE SCREEN URINE NEGATIVE (NEGATIVE); OXYCODONE STAT NEGATIVE (NEGATIVE); PROPOXYPHENE STAT NEGATIVE (NEGATIVE); TRICYCLIC ANTIDEPRESSANTS SCRE NEGATIVE (NEGATIVE)
[2019-07-19 14:16] LABS: BUN/CREATININE RATIO 16; CALCIUM 9.2 MG/DL (8.5-10.1); CARBON DIOXIDE 24 MMOL/L (21-32); CHLORIDE 108 MMOL/L (98-107); GFR ESTIMATED > 60; GLUCOSE 83 MG/DL (70-105); SODIUM 140 MMOL/L (135-145)
--- NOTE | 2019-07-19 14:35 | Diagnostic Imaging Report ---
INDICATION: Headache in left temporal region for two days as well as dizziness and blurred vision. TECHNIQUE: Pre and postcontrast axial imaging through the brain was performed. CT angiography protocol was utilized. Multiplanar, 3-D and MIP reformations are also performed. COMPARISON: Comparison is made with noncontrast head CT from 09/08/2014. FINDINGS: Ventricles and sulci are within normal limits. No sulcal effacement or midline shift is identified. No acute intra-axial or extra-axial hemorrhage is detected. Distal internal carotid arteries are unremarkable. Anterior, middle and posterior cerebral arteries are patent. No definite aneurysm is identified. No vascular malformation is seen. Basilar artery is patent. Delayed postcontrast images are without abnormal enhancement. IMPRESSION: Unremarkable CT angiogram of the head. Dictated by: Dictated on workstation # [id number]
[2019-07-19 14:48] VITALS: BP 149/75
--- OUTSIDE RECORDS SUMMARY | 2019-07-23 13:49 | XMS REPORT ---
Author Author [employer] Organization [employer] Address [address] [address] Care Team Providers Care Multimedia Assistant Name Role Phone NO, LOCAL PHYSICIAN Unavailable Unavailable Allergies No Information Medications No Information Problems No Information Procedures The data below is from unstructured sourcesNo known history of procedures. Immunizations The data below is from unstructured sources Name Given Type Tetanus Booster (TDap) Unknown Historical Results No Information Vital Signs The data below is from unstructured sources Vital Response Date/Time Temperature (Fahrenheit) 98.4 degree s F (97.6 - 99.5) Temperature (Calculated Celsius) 36. 05152 degrees C (36.4 - 37.5) Temperature Source Temporal Pulse Rate (adult) 87 bpm (60 - 90) Respiratory Rate 18 bpm (12 - 24) O2 Sat by Pulse Oximetry 98 % (88 - 100) Blood Pressure 129/91 mm Hg Pain Pain Intensity 4 Height (Feet) 5 feet Height (Inches) 3 inches Height (Calculated Centimeters) 160. 133468 cm Weight (Pounds) 220 pounds Weight (Calculated Kilograms) 99.790 322 kilograms Calculated BMI 38.97 Interventions No Information Plan of Treatment The data below is from unstructured sourcesNo plan of care. Goals No Information Social History No Information Functional Status The data below is from unstructured sourcesNo functional status results. Mental Status No Information Encounters No Information Medical Equipment No Information Payers No Information Advance Directives Directive Response Recor ded Date/Time Advance Directives No 7:43pm Organ Donor No 06/19/14 7:43pm Resuscitation Status Full Code 06/19/14 7:43pm Discharge Instructions No hospital discharge instructions. Additional Source Comments This clinical document has been generated using [employer] software that has been certified by the Office of the National Coordinator for Health Information Technology (ONC 15.99.04.3023.Diam.[id number]) and the National Committee for [employer] (NCQA, as an eMeasure certified technology). FOR RECORDS PERTAINING TO PATIENTS WHO ARE OR HAVE BEEN ENROLLED IN A CHEMICAL D EPENDENCY/SUBSTANCE ABUSE PROGRAM, SOME INFORMATION MAY BE OMITTED. This clinica l summary was aggregated from multiple sources. Caution should be exercised in using it in the provision of clinical care. This summary normalizes information from multiple sources, and as a consequence, information in this document may ma terially change the coding, format and clinical context of patient data. In cris tion, data may be omitted in some cases. CLINICAL DECISIONS SHOULD BE BASED ON T HE PRIMARY CLINICAL RECORDS. [facility]. provides no warranty or guara ntee of the accuracy or completeness of information in this document.The followi information is based on time limited clinical information
== END 2019-07-19 14:45 | disposition home or self-care (01) ==
LOC: EDUNIT# 13:29 → ER 13:30
DX: R51 Headache (principal); Z88.1 Allergy status to other antibiotic agents; Z82.49 Family history of ischemic heart disease and other diseases of the circulatory system
CPT/HCPCS: 36415; 70496; 80048; 80306; 81000; 84703; 85025